=== PATIENT | female | born 1970 | race Two or more races ===

== ENCOUNTER 2023-08-29 20:56 | Emergency (ER) | payer OTHER ==
[2023-08-29] MEDS: Ketorolac 30 MG/ML SDV IM ONE (23:27)
== END 2023-08-30 00:27 | disposition home or self-care (01) ==
LOC: JP.ED 20:56
DX: S00.03XA Contusion of scalp, initial encounter (principal); W01.198A Fall on same level from slipping, tripping and stumbling with subsequent striking against other object, initial encounter
CPT/HCPCS: 70450; 96372; 99283; 99284; J1885